=== PATIENT | male | born 1950 | race Caucasian/White ===

== ENCOUNTER 2020-06-19 09:41 | Emergency (ER) | payer OTHER ==
[~2020-06-19] VITALS: Ht 175.3 cm; Wt 72.6 kg
--- NOTE | 2020-06-19 10:05 | NUR ---
Patient came in to the er c/o runny nose and light cough since yesterday. On room air, breathing evenly and unlabored. kept comfortable ,will continue to monitor accordingly.
--- NOTE | 2020-06-19 10:10 | NUR ---
radiology at bedside for chest xray.
[2020-06-19 10:15] VITALS: BP 114/80
--- NOTE | 2020-06-19 10:25 | NUR ---
lab called pt neg for covid (-)
--- NOTE | 2020-06-19 10:36 | NUR ---
pt no longer in his room. eloped.
== END 2020-06-19 10:42 | disposition left against medical advice (07) ==
LOC: ER 09:47
DX: B34.9 Viral infection, unspecified (principal); R91.8 Other nonspecific abnormal finding of lung field; R05 Cough; Z20.828 Contact with and (suspected) exposure to other viral communicable diseases; J45.909 Unspecified asthma, uncomplicated; E78.5 Hyperlipidemia, unspecified; E03.9 Hypothyroidism, unspecified
CPT/HCPCS: 71045; 87426; 99284; C9803

== ENCOUNTER 2023-12-29 16:23 | Emergency (ER) | payer OTHER ==
[~2023-12-29] VITALS: Ht 177.8 cm; Wt 73.3 kg
[2023-12-29 17:09] VITALS: BP 121/67; TEMP 98; O2SAT 98
== END 2023-12-29 17:09 | disposition home or self-care (01) ==
LOC: ER 16:51
DX: K59.00 Constipation, unspecified (principal); E78.5 Hyperlipidemia, unspecified; J45.909 Unspecified asthma, uncomplicated; Z60.2 Problems related to living alone